=== PATIENT | male | born 2000 | race Caucasian/White ===

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

== ENCOUNTER 2018-11-09 10:38 | Emergency (ER) | payer MEDICAID ==
--- NOTE | 2018-11-09 11:03 | ED Physician Documentation ---
History of Present Illness - Stated complaint Stated Complaint: VOMITING/ABD PX - Chief complaint Chief Complaint: Abd Pain - History obtained from History obtained from: Patient - Additonal information Additional information: Patient is a 18-year-old male presenting with left-sided abdominal pain, nausea, vomiting, diarrhea that mostly occurs in the mornings and has been occurring intermittently over the past few months. Patient states that he came in today as he now has health insurance. Patient denies GERD-like symptoms. He also denies any particular foods, multivitamins, or other medications in the morning. Patient does not think there is association of particular foods with his symptoms. Patient denies any urine changes, fever, or other complaints. Patient reports that after several episodes of vomiting he has occasionally seen streaks of blood. Patient has not tried any medications or diet changes at home. Patient denies regular use of alcohol or other recreational drugs. No other improving or worsening factors noted. Review of Systems Constitutional: denies: Fever GI: reports: Abdominal Pain, Nausea, Vomiting PD PAST MEDICAL HISTORY - Past Medical History Past Medical History: Yes : Kidney stones - Past Surgical History Past Surgical History: No - Present Medications Home Medications: Ambulatory Orders Medication Instructions Recorded Confirmed No Known Home Medications 11/09/18 11/09/18 - Allergies Allergies/Adverse Reactions: Allergies Allergy/AdvReac Type Severity Reaction Status Date / Time No Known Drug Allergies Allergy Verified 11/09/18 10:44 - Social History Does the pt smoke?: No Smoking Status: Never smoker Does the pt drink ETOH?: Yes Does the pt have substance abuse?: No PD ED PE NORMAL - Vitals Vital signs reviewed: Yes - General General: Alert and oriented X 3, No acute distress, Well developed/nourished - HEENT HEENT: Atraumatic, Moist mucous membranes - Cardiac Cardiac: RRR, No murmur - Respiratory Respiratory: No respiratory distress, Clear bilaterally - Abdomen Abdomen: Normal bowel sounds, Soft, Non distended. No: Non tender (Extremely mild generalized left-sided discomfort with palpation. No guarding or rebound present.) - Derm Derm: Normal color, Warm and dry, No rash - Extremities Extremities: No deformity - Neuro Neuro: Alert and oriented X 3, No motor deficit, No sensory deficit - Psych Psych: Normal mood, Normal affect Results - Vitals Vitals: Vital Signs - 24 hr 11/09/18 11/09/1819 10:43 13:51 14:08 Temperature 36.7 C Heart Rate 96 89 92 Respiratory 18 18 16 Rate Blood Pressure 142/83 H 127/78 131/75 H O2 Saturation 99 100 100 11/09/18 14:37 Temperature Heart Rate 91 Respiratory 18 Rate Blood Pressure 127/78 O2 Saturation 100 Oxygen O2 Source Room air - Labs Labs: Laboratory Tests 11/09/18 11/09/18 11/09/18 11:18 11:18 12:30 WBC 6.2 RBC 6.13 H Hgb 16.5 Hct 48.7 MCV 79.5 L MCH 26.9 L MCHC 33.8 RDW 13.9 Plt Count 237 MPV 8.0 Neut # (Auto) 4.1 Lymph # (Auto) 1.4 L [place] # (Auto) 0.5 Eos # (Auto) 0.1 Baso # (Auto) 0.0 Absolute Nucleated RBC 0.00 Nucleated RBC % 0.1 Sodium 137 Potassium 3.8 Chloride 103 Carbon Dioxide 25 Anion Gap 9.0 BUN 10 Creatinine 0.8 Estimated GFR (MDRD) 123 Glucose 118 H Calcium 9.2 Total Bilirubin 1.0 AST 37 ALT 63 H Alkaline Phosphatase 67 Total Protein 8.4 H Albumin 4.6 Globulin 3.8 Albumin/Globulin Ratio 1.2 Lipase 24 Urine Color YELLOW Urine Clarity CLEAR Urine pH 8.0 H Ur Specific [place] 1.010 Urine Protein NEGATIVE Urine Glucose (UA) NEGATIVE Urine Ketones NEGATIVE Urine Occult Blood NEGATIVE Urine Nitrite NEGATIVE Urine Bilirubin NEGATIVE Urine Urobilinogen 1 (NORMAL) Ur Leukocyte Esterase NEGATIVE Ur Microscopic Review NOT INDICATED Urine Culture Comments NOT INDICATED PD MEDICAL DECISION MAKING - ED course Complexity details: reviewed results, re-evaluated patient, considered differential, d/w patient ED course: Patient is complaining of nearly constant abdominal discomfort with associated nausea and vomiting, particularly in the mornings and otherwise not associated with food. Have suspicion for GERD issues, although patient denies acid reflux. Physical exam is relatively benign. Certainly, no acute or surgical abdomen present. Screening lab work and urinalysis obtained which returned unremarkable. CT abdomen/pelvis also obtained and did not find evidence of acute pathology such as appendicitis, small bowel obstruction, gallbladder disease, diverticulitis or other except for mild splenomegaly. Discussed this result, as well as recommendations of supportive cares, diet hydration with patient. Also discussed establishing primary care physician to further evaluate chronic abdominal issues, as well as need for possible referral to GI. Also discussed strict return precautions. Patient voiced understanding and is comfortable with discharge plan. Departure - Departure Disposition: 01 Home, Self Care Clinical Impression: Abdominal pain Qualifiers: Abdominal location: left lower quadrant Qualified Code(s): R10.32 - Left lower quadrant pain Instructions: ED Abdominal Pain Unkn Cause Follow-Up: your,doctor [Other] - Within 3 Days Comments: Recommend bland diet and avoidance of fried foods, fatty foods, greasy foods. Please establish primary care physician and follow-up with them as soon as possible such as in the next 3 to 5 days. You also may require a referral to gastroenterology to further evaluate your GI issues. Return to ED sooner if you experience worsening symptoms or have other concerns.
[2018-11-09] MEDS ORDERED: SODIUM CHLORIDE 0.9% 1,000 ML IV ONE (11:10)
[2018-11-09 11:26] LABS: BASOPHILS % (AUTO) 0.5 %; EOSINOPHILS # (AUTO) 0.1 10^3/uL (0.0-0.7); EOSINOPHILS % (AUTO) 1.6 %; HGB - HEMOGLOBIN 16.5 g/dL (14.0-18.0); LYMPHOCYTES # (AUTO) 1.4 10^3/uL (1.5-3.5); LYMPHOCYTES % (AUTO) 22.4 %; MEAN CORPUSCULAR HEMOGLOBIN 26.9 pg (27.0-31.0); MEAN CORPUSCULAR HGB CONC 33.8 g/dL (32.0-36.0); MEAN CORPUSCULAR VOLUME 79.5 fL (80.0-94.0); MONOCYTES # (AUTO) 0.5 10^3/uL (0.0-1.0); MONOCYTES % (AUTO) 8.9 %; NEUTROPHILS # (AUTO) 4.1 10^3/uL (1.5-6.6); NEUTROPHILS % (AUTO) 66.6 %; PLT - PLATELET COUNT 237 10^3/uL (130-450); RED BLOOD COUNT 6.13 10^6/uL (4.70-6.10); RED CELL DISTRIBUTION WIDTH 13.9 % (12.0-15.0); WHITE BLOOD COUNT 6.2 x10^3/uL (4.8-10.8)
[2018-11-09 11:52] LABS: ALBUMIN 4.6 g/dL (3.2-5.5); ALBUMIN/GLOBULIN RATIO 1.2 (1.0-2.2); CALCIUM 9.2 mg/dL (8.5-10.3); CREATININE 0.8 mg/dL (0.6-1.2); TOTAL PROTEIN 8.4 g/dL (6.7-8.2)
[2018-11-09] MEDS ORDERED: IOVERSOL 320 100 ML VIAL IVP ONE ×2 (12:29→13:08)
[2018-11-09 12:41] LABS: BILIRUBIN,URINE NEGATIVE (NEGATIVE); CLARITY,URINE CLEAR (CLEAR); GLUCOSE, URINE (UA) NEGATIVE (NEGATIVE); KETONES,URINE (UA) NEGATIVE (NEGATIVE); LEUKOCYTE ESTERASE, URINE NEGATIVE (NEGATIVE); NITRITE,URINE NEGATIVE (NEGATIVE); OCCULT BLOOD,URINE NEGATIVE (NEGATIVE); PROTEIN,URINE NEGATIVE (NEGATIVE); UROBILINOGEN,URINE 1 (NORMAL) E.U./dL (NORMAL)
--- NOTE | 2018-11-09 13:50 | CT Report ---
Reason: left pain, vomiting Procedure Date: 11/09/2018 Accession Number: [id number] / [id number] Procedure: CT - Abdomen/Pelvis W CPT Code: FULL RESULT: EXAM: CT ABDOMEN AND PELVIS EXAM DATE: 11/09/2018 01:07 PM. CLINICAL HISTORY: Vomiting for the last month, vomited blood this morning. Left-sided pain COMPARISONS: ABDOMEN/PELVIS W/O 06/13/2016 9:26 AM. TECHNIQUE: Routine helical CT imaging was performed through the abdomen and pelvis. IV contrast: 100 mL Optiray 320. Enteric contrast: No. Reconstructions: Coronal and sagittal. In accordance with CT protocol optimization, one or more of the following dose reduction techniques were utilized for this exam: automated exposure control, adjustment of mA and/or KV based on patient size, or use of iterative reconstructive technique. FINDINGS: Lung Bases: Unremarkable. Liver: Unremarkable. Gallbladder/Bile Ducts: Unremarkable. Spleen: Mildly enlarged, measuring about 15.5 cm in length. Pancreas: Normal. Adrenal Glands: Normal. Kidneys: No hydronephrosis. 1.7 cm hypoattenuating left renal lesion is unchanged and consistent with a cyst. Peritoneal Cavity/Bowel: Normal caliber bowel without evidence of obstruction. No bowel wall thickening evident.. No free fluid, free air or adenopathy. No masses or acute inflammatory process. The appendix is well visualized and normal. Pelvic Organs: The bladder and prostate gland are unremarkable. Vasculature: Unremarkable. Bones: No significant abnormality. Other: None. IMPRESSION: 1. No acute abnormality. 2. Mild splenomegaly. RADIA
[2018-11-09 14:38] VITALS: BP 127/78
== END 2018-11-09 14:47 | disposition home or self-care (01) ==
LOC: ED 10:38
DX: R10.32 Left lower quadrant pain (principal); R11.2 Nausea with vomiting, unspecified; R19.7 Diarrhea, unspecified
CPT/HCPCS: 36415; 74177; 80053; 81003; 83690; 85025; 96360; 96361; 99283; Q9967; 81001; 87086

== ENCOUNTER 2019-06-24 08:00 | Outpatient (CLI) | payer MEDICAID ==
[2019-06-24 19:05] LABS: BASOPHILS % (AUTO) 0.6 %; EOSINOPHILS # (AUTO) 0.1 10^3/uL (0.0-0.7); EOSINOPHILS % (AUTO) 1.4 %; HGB - HEMOGLOBIN 16.4 g/dL (14.0-18.0); LYMPHOCYTES # (AUTO) 1.7 10^3/uL (1.5-3.5); LYMPHOCYTES % (AUTO) 26.6 %; MEAN CORPUSCULAR HEMOGLOBIN 27.4 pg (27.0-31.0); MEAN CORPUSCULAR HGB CONC 32.5 g/dL (32.0-36.0); MEAN CORPUSCULAR VOLUME 84.4 fL (80.0-94.0); MEAN PLATELET VOLUME 10.5 fL (7.4-11.4); MONOCYTES # (AUTO) 0.6 10^3/uL (0.0-1.0); MONOCYTES % (AUTO) 8.7 %; NEUTROPHILS # (AUTO) 4.1 10^3/uL (1.5-6.6); NEUTROPHILS % (AUTO) 62.4 %; PLT - PLATELET COUNT 307 10^3/uL (130-450); RED BLOOD COUNT 5.98 10^6/uL (4.70-6.10); RED CELL DISTRIBUTION WIDTH 13.1 % (12.0-15.0); WHITE BLOOD COUNT 6.5 x10^3/uL (4.8-10.8)
[2019-06-24 19:41] LABS: HB2 TOTAL 17.3 g/dL; HEMOGLOBIN A1C 0.57 g/dL; HEMOGLOBIN A1C % 5.2 % (4.6-6.2)
[2019-06-24 19:51] LABS: BUN - BLOOD UREA NITROGEN 17 mg/dL (6-20); CALCIUM 9.5 mg/dL (8.5-10.3); CARBON DIOXIDE - CO2 23 mmol/L (21-32); CHLORIDE 105 mmol/L (101-111); CHOL/HDL RATIO 3.5 (<5.0); CHOLESTEROL 127 mg/dL; CREATININE 0.7 mg/dL (0.6-1.2); GFR - MDRD 144 (>89); GLUCOSE 101 mg/dL (70-100); HDL CHOLESTEROL 36 mg/dL; LDL CHOLESTEROL,CALCULATED 74 mg/dL; LDL/HDL RATIO 2.1 (<3.6); SODIUM 138 mmol/L (135-145); VLDL CHOLESTEROL 17 mg/dL
== END 2019-06-24 23:59 | disposition home or self-care (01) ==
LOC: LAB.N 08:00
PROVIDERS: ATTEND Physician Assistant Medical
DX: R10.13 Epigastric pain (principal); R73.9 Hyperglycemia, unspecified
CPT/HCPCS: 36415; 80048; 80061; 83036; 83721; 85025

== ENCOUNTER 2019-06-24 08:00 | Outpatient (CLI) | payer MEDICAID | END 2019-06-24 23:59 | disposition home or self-care (01) | LOC: LAB.R 08:00 | PROVIDERS: ATTEND Physician Assistant Medical | DX: R10.13 Epigastric pain (principal) | CPT/HCPCS: 83013 ==